=== PATIENT | female | born 1970 | race African-American/Black ===

== ENCOUNTER 2021-02-23 08:47 | Outpatient (CLI) | payer OTHER ==
[2021-02-23] MEDS ORDERED: Iopamidol-370 76% 500 ML 1 ML ONE (12:19)
[2021-02-23] MEDS ORDERED: Iopamidol 370 76% 50 ML VIAL FS ONE (12:19)
== END 2021-02-23 08:48 | disposition home or self-care (01) ==
LOC: CT 08:47
PROVIDERS: ATTEND Internal Medicine
DX: R10.32 Left lower quadrant pain (principal); D25.9 Leiomyoma of uterus, unspecified
CPT/HCPCS: 74177; Q9967

== ENCOUNTER 2023-02-28 12:59 | Observation (INO) | payer OTHER ==
[2023-02-28 13:31] LABS: #Eosinphils 0.2 thou/uL (0.0-0.7); #Monocytes 0.7 thou/uL (0.11-0.59); #Neutrophils 2.6 thou/uL (1.40-6.50); %Basophils 0.6 % (0.0-1.0); %Eosinophils 3.9 % (0.0-10.0); %Monocytes 12.2 % (0.0-10.0); %Neutrophils 49.1 % (42.0-75.0); Hemoglobin 11.5 g/dL (12.0-16.0); Mean Corpuscular HGB CONC 32.9 g/dL (32.0-36.0); Mean Corpuscular Hemoglobin 28.3 pg (27.0-31.0); Mean Corpuscular Volume 86.2 fl (78.0-98.0); Mean Platelet Volume 11.2 fL (7.4-10.4); Platelet Count 192 10x3/uL (130-400); Red Blood Cell (RBC) Count 4.06 mill/uL (4.20-5.40); White Blood Cell (WBC) Count 5.3 10x3/uL (4.8-10.8)
[2023-02-28] MEDS ORDERED: Nitroglycerin 2% Ointment 1 INCH/1 GM Packet ONE (13:51)
[2023-02-28 13:53] LABS: ALT (SGPT) 12 U/L (8-55); AST (SGOT) 13 U/L (5-34); Albumin 4.2 g/dL (3.5-5.0); Alkaline Phosphatase 44 U/L (40-110); Anion Gap 8 mmol/L (10-20); BUN (Urea Nitrogen) 10 mg/dL (9.8-20.1); Bilirubin, Total 0.2 mg/dL (0.2-1.2); Calc. Creatinine Clearance 0 mL/min (70-130); Calcium 9.2 mg/dL (7.8-10.44); Carbon Dioxide 26 mmol/L (22-29); Chloride 108 mmol/L (98-107); Estimated GFR 98; Globulin 2.8 g/dL (2.4-3.5); Glucose 102 mg/dL (70-105); Lipase 21 U/L (8-78); Potassium 3.3 mmol/L (3.5-5.1); Sodium 139 mmol/L (136-145)
[2023-02-28 13:57] LABS: Troponin I Less than 0.010 ng/mL (< 0.028)
[2023-02-28] MEDS ORDERED: Ondansetron PF 4 MG/2 ML Vial IVP PRN (15:32)
[2023-02-28] MEDS ORDERED: Acetaminophen 325 MG TAB PO PRN (15:32)
[2023-02-28] MEDS ORDERED: Potassium Chloride 20 MEQ TAB PO SCH (15:45)
[2023-02-28 17:00] LABS: Troponin I Less than 0.010 ng/mL (< 0.028)
[2023-02-28 17:02] LABS: Magnesium 2.1 mg/dL (1.6-2.6)
[2023-02-28 19:46] LABS: Troponin I Less than 0.010 ng/mL (< 0.028)
[2023-02-28] MEDS: Nitroglycerin 2% Ointment 1 INCH/1 GM Packet TOP SCH (20:45)
[2023-02-28] MEDS ORDERED: Rosuvastatin 20 MG TAB PO SCH (21:00)
[2023-02-28 21:17] LABS: Bacteria/HPF None Seen HPF (None Seen); Bilirubin Negative (Negative); Blood, Urine Negative (Negative); Clarity Clear (Clear); Glucose, Urine (Dipstick) Normal (Negative); Ketone, Urine Negative (Negative); Leukocyte Negative Leu/uL (Negative); Nitrite Negative (Negative); Protein, Urine (Dipstick) Negative (Neg-Trace); RBC/HPF 0-3 HPF (0-3); Specific Gravity, Urine 1.016 (1.002-1.036); Urobilinogen Normal mg/dL (Less than 2); WBC/HPF 0-3 HPF (0-3); pH, Urine 6.5 (5.0-9.0)
[2023-03-01] MEDS: Nitroglycerin 2% Ointment 1 INCH/1 GM Packet TOP SCH ×2 (04:45→12:52)
[2023-03-01 07:47] LABS: Anion Gap 12 mmol/L (10-20); BUN (Urea Nitrogen) 12 mg/dL (9.8-20.1); Calc. Creatinine Clearance 129 mL/min (70-130); Calcium 8.8 mg/dL (7.8-10.44); Carbon Dioxide 23 mmol/L (22-29); Cardiac Risk 3.4 (Less than 4.5); Chloride 109 mmol/L (98-107); Cholesterol 143 mg/dl (< 200 Desired); Estimated GFR 102; Glucose 91 mg/dL (70-105); HDL Cholesterol 42 mg/dL (>60 Neg Risk); LDL Cholesterol, Calculated 94 mg/dL; Potassium 3.9 mmol/L (3.5-5.1); Sodium 140 mmol/L (136-145); Triglycerides 36 mg/dL (Less than 150)
[2023-03-01] MEDS ORDERED: Losartan 25 MG TAB PO SCH (09:00)
[2023-03-01] MEDS ORDERED: Aspirin Chewable 81 MG TAB PO SCH (09:00)
[2023-03-01] MEDS ORDERED: Hydrochlorothiazide 25 MG TAB PO SCH (09:00)
[2023-03-01] MEDS ORDERED: Regadenoson 0.4 MG/5 ML SYRINGE ONE (10:29)
[2023-03-01 15:31] VITALS: BP 159/88; TEMP 97.4
== END 2023-03-01 17:20 | disposition home or self-care (01) ==
LOC: ERS 12:59 → ERHOLD 14:50 → 2NO 17:27
PROVIDERS: ADMIT Family Medicine; ATTEND Family Medicine
DX: R07.89 Other chest pain (principal); I10 Essential (primary) hypertension; E78.5 Hyperlipidemia, unspecified; D64.9 Anemia, unspecified; Z79.899 Other long term (current) drug therapy
CPT/HCPCS: 36415; 71045; 78452; 80048; 80053; 80061; 81001; 83690; 83735; 84443; 84484; 85025; 93005; 93017; A9502; G0378; J2785